=== PATIENT | male | born 1995 | race Two or more races ===

== ENCOUNTER 2023-10-04 14:51 | Emergency (ER) | payer OTHER ==
[~2023-10-04] VITALS: Ht 170.2 cm; Wt 83.9 kg
[2023-10-04] MEDS ORDERED: SODIUM CHLORIDE 0.9% 1,000 ML IV ONE (16:00)
[2023-10-04 16:25] LABS: Basophils # (auto) 0.1 10 ^3/uL (0-0.2); Basophils % (auto) 0.4 % (0.0-2.0); Eosinophils # (auto) 0 10 ^3/uL (0-0.8); Eosinophils % (auto) 0.2 % (0.0-7.0); Hematocrit 48.4 % (41.0-53.0); Hemoglobin 16.9 g/dL (13.5-17.5); Lymphocytes % (auto) 5.3 % (10.0-50.0); Mean Corpuscular Hgb Conc. 34.9 g/dL (32.0-36.0); Monocytes % (auto) 5.3 % (0.0-12.0); Neutrophils # (auto) 16.1 10 ^3/uL (1.6-8.6); Neutrophils % (auto) 88.8 % (37.0-80.0); Nucleated Red Blood Cells % 0.1 %; Red Blood Cells 5.63 10^6/uL (4.5-5.90); Red Cell Distribution Width 12.4 % (11.8-14.3); White Blood Cell 18.1 10^3/uL (4.4-10.8)
[2023-10-04 16:29] LABS: Alanine Aminotransferase 118 U/L (7-40); Alkaline Phosphatase 72 U/L (46-116); Anion Gap 8 (5-15); Aspartate Aminotransferase 42 U/L (13-40); BUN/Creatinine Ratio 7.1 (10.0-20.0); Bilirubin, Total 0.8 mg/dL (0.2-1.0); Blood Urea Nitrogen 6 mg/dL (9-23); Calcium 9.5 mg/dL (8.7-10.4); Carbon Dioxide 27 mmol/L (20-30); Chloride 100 mmol/L (98-107); Glucose 101 mg/dL (74-106); Potassium 3.7 mmol/L (3.5-5.1); Sodium 135 mmol/L (136-145); Total Protein 7.7 g/dL (5.7-8.2)
[2023-10-04] MEDS ORDERED: PIPERACILLIN-TAZOB 3.375GM 100 ML IV ONE (17:45)
[2023-10-04] MEDS ORDERED: fentaNYL CITRATE 100 MCG/2 ML VL IV ONE (17:45)
[2023-10-04] MEDS ORDERED: ONDANSETRON HCL 4 MG/2 ML VIAL IV ONE (17:45)
[2023-10-04] MEDS ORDERED: ONDANSETRON HCL 8 MG in D5W 5% 50 ML IV ONE (18:15)
[2023-10-04 18:41] LABS: Urine Bacteria NONE SEEN /hpf (None Seen); Urine Blood Negative /uL (Negative); Urine Clarity Clear (Clear); Urine Color Colorless (Yellow); Urine Protein, UAD Negative (Negative); Urine Specific Gravity 1.007 (1.001-1.035); Urine Urobilinogen Normal (Negative); Urine WBC <1 /hpf (0 - 3)
[2023-10-04] MEDS ORDERED: MORPHINE SULFATE INJ 2 MG/ml SYRG IV PRN (20:15)
[2023-10-04] MEDS ORDERED: ONDANSETRON HCL 4 MG/2 ML VIAL IV PRN (20:15)
[2023-10-04] MEDS ORDERED: SODIUM CHLORIDE 0.9% 1,000 ML IV SCH (20:15)
[2023-10-04 21:16] VITALS: PULSE 70; RESP 20; O2SAT 98
[2023-10-04 21:24] LABS: INR 0.98 (0.9-1.15); Prothrombin Time 10.3 sec (9.3-11.8)
[2023-10-05 01:08] VITALS: BP 150/94; PULSE 55; RESP 20; TEMP 98.2; O2SAT 99
[2023-10-05] MEDS ORDERED: PIPERACILLIN-TAZOB 3.375GM 100 ML IV SCH (02:00)
== END 2023-10-05 01:41 | disposition short-term general hospital (02) ==
LOC: ER 14:51
DX: K35.80 Unspecified acute appendicitis (principal)
CPT/HCPCS: 36415; 74177; 80053; 81001; 83605; 83690; 85025; 85610; 86850; 86900; 86901; 87040; 96361; 96365; 96366; 96368; 96375; 99285; J2405; J2543; J3010; J7030; J7060; Q9967; 87426